=== PATIENT | male | born 1965 | race African-American/Black ===

== ENCOUNTER 2016-07-20 04:19 | Emergency (ER) | payer SELFPAY ==
[~2016-07-20] VITALS: Ht 185.4 cm; Wt 81.0 kg
[~2016-07-20 04:19] MED LIST: ALBU05 IH
[2016-07-20] MEDS ORDERED: METHYLPREDNISOLONE SOD SUCC 125 MG/2 ML VIAL IV STA (04:38)
[2016-07-20] MEDS ORDERED: ALBUTEROL (0.083%) 2.5MG/3ML NEB HHN STA (04:38)
[2016-07-20] MEDS ORDERED: IPRATROPIUM BROMIDE (0.02%) 0.5MG/2.5ML NEB HHN STA (04:38)
[2016-07-20 06:14] VITALS: BP 140/78
== END 2016-07-20 09:05 | disposition home or self-care (01) ==
LOC: ER 08:43
DX: J44.1 Chronic obstructive pulmonary disease with (acute) exacerbation (principal); J45.909 Unspecified asthma, uncomplicated; F17.200 Nicotine dependence, unspecified, uncomplicated
CPT/HCPCS: 71010; 94640; 96374; 99284; J2930; J7611; Z7610

== ENCOUNTER 2017-06-07 08:35 | Inpatient (IN) | payer MEDICAID ==
[~2017-06-07] VITALS: Ht 185.4 cm; Wt 76.7 kg
[2017-06-07] MEDS: IPRATROPIUM/ALBUTEROL 0.5-3(2.5)MG/3ML NEB HHN SCH ×5 (08:00→20:00)
[2017-06-07] MEDS ORDERED: METHYLPREDNISOLONE SOD SUCC 125 MG/2 ML VIAL IV STA (09:14)
[2017-06-07] MEDS ORDERED: ALBUTEROL (0.083%) 2.5MG/3ML NEB HHN STA (09:14)
[2017-06-07] MEDS ORDERED: IPRATROPIUM BROMIDE (0.02%) 0.5MG/2.5ML NEB HHN STA (09:14)
[2017-06-07] MEDS ORDERED: MAGNESIUM 2 G PREMIX 50 ML IV ONE (09:15)
[2017-06-07 10:25] LABS: BASOPHILS % 0.5 % (0.0-2.0); EOSINOPHILS % 9.4 % (0.0-5.0); HEMATOCRIT. 43.6 % (42.0-52.0); HEMOGLOBIN. 14.5 g/dL (14.0-18.0); LYMPHOCYTES % 26.2 % (20.0-50.0); MEAN CORPUSCULAR HEMOGLOBIN 30.8 pg (28.0-32.0); MEAN CORPUSCULAR VOLUME 92.6 fL (80.0-94.0); MEAN PLATELET VOLUME 8.7 fl (7.4-10.4); MONOCYTES % 6.6 % (2.0-8.0); NEUTROPHILS % 57.3 % (40.0-76.0); PLATELET 298 x1000/uL (130-400); RED BLOOD CELL COUNT 4.71 mill/uL (4.7-6.1); RED CELL DISTRIBUTION WIDTH 13.7 % (11.6-14.6)
[2017-06-07 10:33] LABS: CHLORIDE 103 mEq/L (98-107)
[2017-06-07 10:34] LABS: INR 1.1
[2017-06-07 10:39] LABS: TROPONIN I < 0.02 ng/mL (0.00-0.04)
[2017-06-07] MEDS ORDERED: ACETAMINOPHEN 325MG TABLET PO PRN (11:15)
[2017-06-07] MEDS ORDERED: AMLODIPINE 10MG TABLET PO SCH (11:15)
[2017-06-07] MEDS ORDERED: CLONIDINE 0.1MG TABLET PO PRN (11:15)
[2017-06-07] MEDS ORDERED: IPRATROPIUM/ALBUTEROL 0.5-3(2.5)MG/3ML NEB HHN PRN (11:15)
[2017-06-07] MEDS ORDERED: HYDROCODONE/ACETAMINOPHEN 5/325MG TABLET PO PRN (11:15)
[2017-06-07] MEDS: BUDESONIDE 0.5MG/2ML NEB HHN SCH (12:00)
[2017-06-07] MEDS ORDERED: METHYLPREDNISOLONE SOD SUCC 40 MG/ML VIAL IV NR (19:00)
[2017-06-07] MEDS ORDERED: GUAIFENESIN 600MG ER TABLET PO SCH (19:00)
[2017-06-07 23:05] VITALS: BP 132/83
[2017-06-08] MEDS ORDERED: AZITHROMYCIN 500 MG TABLET PO SCH
[2017-06-08 04:00] VITALS: BP 115/58
[2017-06-08] MEDS: IPRATROPIUM/ALBUTEROL 0.5-3(2.5)MG/3ML NEB HHN SCH ×5 (04:00→11:30)
[2017-06-08] MEDS: BUDESONIDE 0.5MG/2ML NEB HHN SCH ×2 (04:43)
[2017-06-08] MEDS ORDERED: METHYLPREDNISOLONE SOD SUCC 40 MG/ML VIAL IV SCH (06:00)
[2017-06-08 08:00] VITALS: BP 98/58
[2017-06-08] MEDS ORDERED: GUAIFENESIN 600MG ER TABLET PO SCH (09:00)
[2017-06-08 11:15] VITALS: BP_SYST 120; BP_SYST 98; BP_DIAS 58; BP_DIAS 60
[2017-06-08 12:23] VITALS: BP 120/67
[2017-06-09] MEDS ORDERED: PREDNISONE 20MG TABLET PO SCH (09:00)
== END 2017-06-08 14:20 | disposition home or self-care (01) | DRG 133 ==
LOC: ER 08:58 → 6WST 10:42 → EDBEDREQ 10:52 → ENRESERV 20:09
PROVIDERS: ADMIT Internal Medicine; ATTEND Internal Medicine
DX: J96.01 Acute respiratory failure with hypoxia (principal); J18.9 Pneumonia, unspecified organism; J44.0 Chronic obstructive pulmonary disease with (acute) lower respiratory infection; J44.1 Chronic obstructive pulmonary disease with (acute) exacerbation; J45.901 Unspecified asthma with (acute) exacerbation; Z60.2 Problems related to living alone; F14.90 Cocaine use, unspecified, uncomplicated; F17.210 Nicotine dependence, cigarettes, uncomplicated; I10 Essential (primary) hypertension; Z79.899 Other long term (current) drug therapy; Z72.89 Other problems related to lifestyle
CPT/HCPCS: 36415; 71045; 80053; 83605; 83690; 83880; 84484; 85025; 85610; 87040; 93005; 94640; 96365; 96375; 99285; J2920; J2930; J3475; J7611; J7620; J7626

== ENCOUNTER 2020-03-18 14:50 | Emergency (ER) | payer MEDICAID ==
[~2020-03-18] VITALS: Ht 185.4 cm; Wt 87.0 kg
[2020-03-18 15:37] VITALS: BP 102/78
== END 2020-03-18 20:21 | disposition left against medical advice (07) ==
LOC: ER 14:50
DX: Z53.21 Procedure and treatment not carried out due to patient leaving prior to being seen by health care provider (principal)

== ENCOUNTER 2023-02-28 16:34 | Emergency (ER) | payer MEDICAID, OTHER ==
[~2023-02-28] VITALS: Ht 177.8 cm; Wt 80.0 kg
[2023-02-28 16:41] VITALS: BP 103/70; TEMP 98.6
[2023-02-28] MEDS ORDERED: TETANUS, DIPHTHERIA, PERTUSSIS VAC/PF 0.5ML (>10YR OLD) IM ONE ×2 (19:30→22:15)
[2023-02-28] MEDS ORDERED: IBUPROFEN 600MG TABLET PO ONE (19:30)
[2023-02-28] MEDS ORDERED: LIDOCAINE HCL/PF 1% 10 MG/ML 5ML VIAL INFIL ONE ×2 (19:30→22:00)
[2023-02-28] MEDS ORDERED: BACITRACIN ZINC OINT UDPKT TOP ONE (19:30)
[2023-02-28] MEDS ORDERED: PREDNISONE 20MG TABLET PO ONE (19:30)
[2023-02-28] MEDS ORDERED: ALBUTEROL (0.083%) 2.5MG/3ML NEB HHN ONE (19:30)
[2023-02-28 21:30] VITALS: PULSE 100; RESP 20; O2SAT 99
[2023-02-28] MEDS ORDERED: P50 MT (21:38)
[2023-02-28] MEDS ORDERED: IBUP-2029 MT (21:38)
[2023-02-28] MEDS ORDERED: ALBU18HF2 IH (21:38)
[2023-02-28] MEDS ORDERED: BACITRACIN ZINC OINT UDPKT TOP NR (22:00)
[2023-02-28] MEDS ORDERED: CEPH500C2 MT (22:01)
[2023-02-28] MEDS ORDERED: IBUPROFEN 600MG TABLET PO NR (22:15)
[2023-02-28] MEDS ORDERED: PREDNISONE 20MG TABLET PO NR (22:15)
== END 2023-03-01 01:44 | disposition home or self-care (01) ==
LOC: ER 16:34
DX: S61.412A Laceration without foreign body of left hand, initial encounter (principal); J45.901 Unspecified asthma with (acute) exacerbation; W27.0XXA Contact with workbench tool, initial encounter; Y93.89 Activity, other specified; Y92.89 Other specified places as the place of occurrence of the external cause; Y99.8 Other external cause status
CPT/HCPCS: 71045; 73130; 90715; 94640; 12001; 90471; 99284; J7512; J3490; Z7610 ×3; A4565

== ENCOUNTER 2024-06-20 07:23 | Emergency (ER) | payer MEDICAID, OTHER ==
[~2024-06-20] VITALS: Ht 175.3 cm; Wt 75.0 kg
[~2024-06-20 07:23] MED LIST changes: +ALBU18HF2 IH; +CEPH500C2 MT; +GUAI237L83 MT; +IBUP-2029 MT; +P50 MT
[2024-06-20] MEDS: METHYLPREDNISOLONE SOD SUCC 125MG/2ML (ACT-O-VIAL) IV STA (07:57)
[2024-06-20] MEDS: MAGNESIUM 2 G PREMIX 50 ML IV ONE (07:57)
[2024-06-20 08:04] VITALS: PULSE 83; RESP 16; O2SAT 93
[2024-06-20] MEDS: ALBUTEROL (0.083%) 2.5MG/3ML NEB HHN STA (08:04)
[2024-06-20] MEDS: IPRATROPIUM BROMIDE (0.02%) 0.5MG/2.5ML NEB HHN STA (08:04)
[2024-06-20 08:17] LABS: BASOPHILS % 0.5 % (0.0-2.0); HEMATOCRIT. 41.8 % (42.0-52.0); HEMOGLOBIN. 13.8 g/dL (14.0-18.0); LYMPHOCYTES % 26.7 % (20.0-50.0); MEAN CORPUSCULAR HEMOGLOBIN 31.1 pg (28.0-32.0); MEAN CORPUSCULAR HGB CONC 33.1 g/dL (31.0-37.0); MEAN CORPUSCULAR VOLUME 93.9 fL (80.0-94.0); MEAN PLATELET VOLUME 8.2 fl (7.4-10.4); MONOCYTES % 11.3 % (2.0-8.0); NEUTROPHILS % 57.5 % (40.0-76.0); PLATELET 195 x1000/uL (130-400); RED BLOOD CELL COUNT 4.45 mill/uL (4.7-6.1); RED CELL DISTRIBUTION WIDTH 14.1 % (11.6-14.6); WHITE BLOOD COUNT 8.8 x1000/uL (4.5-11.0)
[2024-06-20 08:28] LABS: CHLORIDE 103 mEq/L (98-107); POTASSIUM 3.8 mEq/L (3.5-5.1); SODIUM 141 mEq/L (136-145)
[2024-06-20 08:29] LABS: CARBON DIOXIDE 32 mEq/L (21-32)
[2024-06-20 08:30] LABS: CALCIUM 9.4 mg/dL (8.7-10.4)
[2024-06-20 08:35] LABS: GLUCOSE 91 mg/dL (70-105); UREA NITROGEN BLOOD 12 mg/dL (9-23)
[2024-06-20 08:36] LABS: TROPONIN I HIGH SENSITIVITY 6 ng/L (3.0-53)
[2024-06-20] MEDS ORDERED: IPRATROPIUM/ALBUTEROL 0.5-3(2.5)MG/3ML NEB HHN PRN (11:45)
[2024-06-20] MEDS ORDERED: ONDANSETRON HCL 4MG/2ML INJ IV PRN (11:45)
[2024-06-20] MEDS ORDERED: DEXTROSE 50% WATER 50ML SYRINGE IV PRN (11:45)
[2024-06-20] MEDS ORDERED: METHYLPREDNISOLONE SOD SUCC 125MG/2ML (ACT-O-VIAL) IV SCH (11:45)
[2024-06-20] MEDS ORDERED: CLONIDINE 0.1MG TABLET PO PRN (11:45)
[2024-06-20 12:00] VITALS: BP 124/76; PULSE 95; RESP 18; TEMP 36.7; O2SAT 93
[2024-06-20 12:43] LABS: PHOSPHORUS 5.1 mg/dL (2.5-4.9)
[2024-06-20] MEDS: BLOOD SUGAR DIAGNOSTIC STRIP TEST SCH (12:47)
[2024-06-20] MEDS ORDERED: BUDESONIDE 0.25MG/2ML NEB HHN SCH (13:00)
[2024-06-20] MEDS ORDERED: MAGNESIUM 2 G PREMIX 50 ML IV NR (13:00)
[2024-06-20] MEDS: BUDESONIDE 0.5MG/2ML NEB HHN SCH (14:00)
[2024-06-20] MEDS: IPRATROPIUM/ALBUTEROL 0.5-3(2.5)MG/3ML NEB HHN SCH (14:31)
== END 2024-06-20 11:38 | disposition admitted as inpatient to this hospital (09) ==
LOC: ER 07:23 → EDBEDREQ 10:29 → EDBEDREQTM 10:29 → ER 11:38
DX: J44.1 Chronic obstructive pulmonary disease with (acute) exacerbation (principal); F12.90 Cannabis use, unspecified, uncomplicated; Z79.52 Long term (current) use of systemic steroids; Z79.899 Other long term (current) drug therapy
CPT/HCPCS: 80048; 83036; 83735; 84100; 85025; 84484; 36415; 71045; 93005; 94644; 96365; 96366; 96375; 99285; J3475; J2919; Z7610 ×3; 94070; 94640; J7626

== ENCOUNTER 2024-10-19 23:55 | Emergency (ER) | payer MEDICAID ==
[~2024-10-19] VITALS: Ht 185.4 cm; Wt 82.0 kg
[2024-10-20 00:04] VITALS: O2SAT 98
[2024-10-20] MEDS: IPRATROPIUM/ALBUTEROL 0.5-3(2.5)MG/3ML NEB HHN ONE (01:08)
[2024-10-20 01:10] VITALS: PULSE 89; RESP 22
[2024-10-20] MEDS ORDERED: IPRA3AMP9 HHN (01:20)
[2024-10-20] MEDS ORDERED: P50 MT (01:20)
[2024-10-20] MEDS ORDERED: GUAI237L83 MT (01:20)
[2024-10-20 01:25] LABS: BASOPHILS % 0.3 % (0.0-2.0); EOSINOPHILS % 3.9 % (0.0-5.0); HEMATOCRIT. 39.8 % (42.0-52.0); HEMOGLOBIN. 13.2 g/dL (14.0-18.0); LYMPHOCYTES % 21.0 % (20.0-50.0); MEAN PLATELET VOLUME 8.2 fl (7.4-10.4); MONOCYTES % 6.6 % (2.0-8.0); NEUTROPHILS % 68.2 % (40.0-76.0); PLATELET 214 x1000/uL (130-400); RED BLOOD CELL COUNT 4.16 mill/uL (4.7-6.1); RED CELL DISTRIBUTION WIDTH 14.4 % (11.6-14.6)
[2024-10-20] MEDS: SODIUM CHLORIDE 0.9% 1,000 ML IV ONE (01:29)
[2024-10-20] MEDS: METHYLPREDNISOLONE SOD SUCC 125MG/2ML (ACT-O-VIAL) IV ONE (01:35)
[2024-10-20 01:39] LABS: CREATININE 1.1 mg/dL (0.6-1.3); UREA NITROGEN BLOOD 10 mg/dL (9-23)
[2024-10-20 02:13] VITALS: BP 134/81; PULSE 73; RESP 17; TEMP 37; O2SAT 97
== END 2024-10-20 02:23 | disposition home or self-care (01) ==
LOC: ER 23:55
DX: J45.901 Unspecified asthma with (acute) exacerbation (principal); Z79.899 Other long term (current) drug therapy
CPT/HCPCS: 99285; 80048; 85025; 36415; 71045; 94640; 93005; 96361; 96374; Z7610 ×6; J2919; J7030